=== PATIENT | female | born 2000 | race Two or more races ===

== ENCOUNTER 2025-06-17 16:51 | Emergency (ER) | payer MEDICAID ==
[~2025-06-17] VITALS: Ht 165.1 cm; Wt 91.2 kg
[2025-06-17 17:13] VITALS: BP 124/83; TEMP 98
[2025-06-17] MEDS ORDERED: FAMO20TA80 PO (18:49)
[2025-06-17] MEDS ORDERED: DIPH25CA83 PO (18:49)
[2025-06-17 18:55] VITALS: O2SAT 98
== END 2025-06-17 18:56 | disposition home or self-care (01) ==
LOC: ER 16:58
DX: R20.0 Anesthesia of skin (principal)